=== PATIENT | male | born 1960 | race Native Hawaiian/Other Pacific Islander ===

== ENCOUNTER 2018-02-15 08:27 | Outpatient (CLI) | payer OTHER | END 2018-02-15 08:32 | disposition short-term general hospital (02) | LOC: AMB 08:27 | DX: M54.89 Other dorsalgia (principal); R07.89 Other chest pain; M95.4 Acquired deformity of chest and rib; S08.0XXA Avulsion of scalp, initial encounter; S82.292A Other fracture of shaft of left tibia, initial encounter for closed fracture; S82.492A Other fracture of shaft of left fibula, initial encounter for closed fracture; V85.5XXA Driver of special construction vehicle injured in nontraffic accident, initial encounter; Y92.488 Other paved roadways as the place of occurrence of the external cause | CPT/HCPCS: A0425; A0427 ==

== ENCOUNTER 2019-03-17 16:05 | Outpatient (CLI) | payer OTHER ==
[2019-03-17 16:33] LABS: PLATELET COUNT 212 K/uL (142-355)
[2019-03-17 16:52] LABS: POTASSIUM 3.6 mmol/L (3.6-5.2)
== END 2019-03-17 23:39 | disposition home or self-care (01) ==
LOC: LABW 16:05
PROVIDERS: Internal Medicine Gastroenterology
DX: R94.5 Abnormal results of liver function studies (principal)
CPT/HCPCS: 36415; 80053; 80074; 82103; 82248; 82390; 82525; 82728; 83516; 83540; 83550; 84466; 85027; 86038

== ENCOUNTER 2019-03-21 11:14 | Outpatient (CLI) | payer OTHER | END 2019-03-22 05:51 | disposition home or self-care (01) | LOC: US 11:14 → RAD 13:30 → US 03-22 05:51 | DX: R13.19 Other dysphagia (principal); R94.5 Abnormal results of liver function studies ==

== ENCOUNTER 2019-03-30 11:05 | Day surgery (SDC) | payer OTHER ==
[~2019-03-30] VITALS: Ht 188 cm; Wt 118.8 kg
[2019-03-30 12:33] LABS: POTASSIUM 4.2 mmol/L (3.6-5.2)
[2019-03-30 17:39] LABS: PLATELET COUNT 174 K/uL (142-355)
== END 2019-03-30 14:40 | disposition home or self-care (01) ==
LOC: OR 11:05
PROVIDERS: Internal Medicine Gastroenterology
PROC: 0DB68ZZ Excision of Stomach, Via Natural or Artificial Opening Endoscopic (ICD-10-PCS; principal; 2019-03-30)
PROC: 0D718ZZ Dilation of Upper Esophagus, Via Natural or Artificial Opening Endoscopic (ICD-10-PCS; 2019-03-30)
DX: K25.9 Gastric ulcer, unspecified as acute or chronic, without hemorrhage or perforation (principal); K29.00 Acute gastritis without bleeding; Z98.84 Bariatric surgery status; K21.0 Gastro-esophageal reflux disease with esophagitis; K22.2 Esophageal obstruction; R13.19 Other dysphagia; Z93.0 Tracheostomy status
CPT/HCPCS: 80053; 85027; J2001; J2250; J2405; J2704

== ENCOUNTER 2019-09-01 12:31 | Outpatient (CLI) | payer OTHER ==
[2019-09-01 13:05] LABS: PLATELET COUNT 161 K/uL (142-355)
[2019-09-01 13:28] LABS: POTASSIUM 4.4 mmol/L (3.6-5.2)
== END 2019-09-01 22:33 | disposition home or self-care (01) ==
LOC: LABW 12:31
PROVIDERS: Internal Medicine Medical Oncology
DX: D64.89 Other specified anemias (principal); E55.9 Vitamin D deficiency, unspecified
CPT/HCPCS: 36415; 80053; 81256; 85027

== ENCOUNTER 2022-02-10 14:26 | Outpatient (CLI) | payer OTHER | END 2022-02-10 18:50 | disposition home or self-care (01) | LOC: RAD 14:26 | PROVIDERS: ATTEND Internal Medicine | DX: R05.3 Chronic cough (principal) ==